=== PATIENT | male | born 1940 | race Caucasian/White ===

== ENCOUNTER → 2019-12-19 10:05 | Outpatient (CLI) | payer MEDICARE, SELFPAY ==
[2019-12-19 12:02] LABS: Coronavirus 19 IgG Antibody Negative (Negative); Coronavirus 19 IgM Antibody Negative (Negative)
== END ==
PROVIDERS: Visit Provider Family Medicine
DX: Z01.89 Encounter for other specified special examinations (principal); G47.33 Obstructive sleep apnea (adult) (pediatric)
CPT/HCPCS: 36415; 86328

== ENCOUNTER → 2019-12-20 20:07 | Outpatient (CLI) | payer MEDICARE, SELFPAY | PROVIDERS: PCP Family Medicine; Visit Provider Family Medicine | DX: Z01.89 Encounter for other specified special examinations (principal); G47.33 Obstructive sleep apnea (adult) (pediatric); I10 Essential (primary) hypertension | CPT/HCPCS: 95810 ==

== ENCOUNTER → 2020-03-14 12:42 | Outpatient (CLI) | payer MEDICARE, SELFPAY | PROVIDERS: PCP Family Medicine; Visit Provider Specialist | DX: G47.33 Obstructive sleep apnea (adult) (pediatric) (principal) | CPT/HCPCS: G0399 ==

== ENCOUNTER → 2020-05-28 16:37 | Outpatient (CLI) | payer MEDICARE, SELFPAY ==
--- NOTE | 2020-05-28 16:48 | XR_ITS ---
PROCEDURE: XR RIBS RT MIN 3V W [id number] CLINICAL INDICATION: eval for rib fracture Injury with pain COMPARISON: No exams were available for comparison FINDINGS: Multiple views of the right ribs show no obvious fracture. No lytic or blastic change. Consider follow-up in 7-[address] with 3D reformats if pain persists Frontal view of the chest shows no acute finding There is thoracolumbar curvature convex right. IMPRESSION: No acute findings. Dictated by: Weston Daniel MD 05/28/2020 21:01 Weston Daniel MD in [facility] 05/28/2020 21:01
[2020-05-28 19:28] LABS: Thyroid Stimulating Hormone 1.05 uIU/mL (0.465-4.68)
[2020-05-28 20:03] LABS: Vitamin B12 629 pg/mL (239-931)
[2020-05-28 20:07] LABS: Folate 7.29 ng/mL
== END ==
PROVIDERS: PCP Psychiatry & Neurology Neurology; Visit Provider Nurse Practitioner Family
DX: R07.81 Pleurodynia (principal); G20 Parkinson's disease; R29.6 Repeated falls; G47.9 Sleep disorder, unspecified; R26.81 Unsteadiness on feet; Z68.26 Body mass index [BMI] 26.0-26.9, adult; R44.1 Visual hallucinations; F02.80 Dementia in other diseases classified elsewhere, unspecified severity, without behavioral disturbance, psychotic disturbance, mood disturbance, and anxiety
CPT/HCPCS: 36415; 71101; 82607; 82746; 84443

== ENCOUNTER → 2020-06-25 11:05 | Outpatient (CLI) | payer MEDICARE, SELFPAY ==
--- NOTE | 2020-06-25 11:06 | MR_ITS ---
PROCEDURE: MR HEAD/BRAIN WO CON CLINICAL INDICATION: visual hallucinations, freq falls, abnormal gait Hx dementia. Pt having dizziness and blurred vision. COMPARISON: No exams were available for comparison TECHNIQUE: Routine multiplanar multi echo sequences are performed without gadolinium enhancement. FINDINGS: No midline shift, mass effect, intracranial hemorrhage, or hydrocephalus. The cerebellopontine angles and cerebellum and brainstem have an unremarkable appearance. There is generalized atrophy with nonspecific T2 white matter hyperintensities in the periventricular regions and subcortical area. A small focus of T2 hyperintensity is present in the tony on the left. These areas do not demonstrate restricted diffusion. No evidence of acute infarction. There is mild prominence of the lateral ventricles which may be due to ex vacuo dilatation. The pituitary, optic chiasm, corpus callosum, and craniocervical junction have an unremarkable appearance. Small amount fluid is present in the mastoid sinuses on both sides. No paranasal sinus air-fluid level. IMPRESSION: No acute intracranial findings. Atrophy with chronic microvascular angiopathy changes Dictated by: Weston Daniel MD 06/26/2020 15:14 Weston Daniel MD in [facility] 06/26/2020 15:14
--- NOTE | 2020-06-25 11:16 | XR_ITS ---
PROCEDURE: XR ORBIT BILATERAL MIN 4V CLINICAL INDICATION: RULE OUT METAL FOREIGN BODY FOR MRI COMPARISON: No exams were available for comparison TECHNIQUE: AP views are obtained of the orbits with the patient looking up and down. FINDINGS: No radio opaque foreign bodies evident over the globes. There are 2 cerclage wires present 1 at the zygomatic orbital junction and 1 at the lateral orbital wall at the zygomatic frontal junction.. IMPRESSION: No radio opaque orbital foreign body identified. Dictated by: Weston Daniel MD 06/25/2020 11:37 Weston Daniel MD in [facility] 06/25/2020 11:37
== END ==
PROVIDERS: PCP Psychiatry & Neurology Neurology; Visit Provider Specialist
DX: H05.53 Retained (old) foreign body following penetrating wound of bilateral orbits; G20 Parkinson's disease; F02.80 Dementia in other diseases classified elsewhere, unspecified severity, without behavioral disturbance, psychotic disturbance, mood disturbance, and anxiety; R44.1 Visual hallucinations; R26.81 Unsteadiness on feet; R29.6 Repeated falls
CPT/HCPCS: 70200; 70551